=== PATIENT | female | born 1935 | race Caucasian/White ===

== ENCOUNTER 2019-04-12 21:34 | Observation (INO) ==
[2019-04-13 00:06] LABS: Barbiturates Screen,Urine Negative (Negative); Benzodiazepines Screen,Urine Negative (Negative); Cannabinoid Screen,Urine Negative (Negative); Opiate Screen,Urine Positive (Negative); Phencyclidine Screen,Urine Negative (Negative)
[2019-04-13 00:17] LABS: Apearance,Urine CLEAR (Clear); Bilirubin,Urine Negative (Negative); Blood, Urine Negative (Negative); Glucose,Urine (UA) Negative (Negative); Hyaline Casts,Urine 15 /LPF (0-3); Ketones,Urine Negative (Negative); Mucus,Urine Occasional /LPF (Occasional); Nitrite,Urine Negative (Negative); Protein,Urine Negative; Urine Color Yellow (Yellow); Urine Specific Gravity 1.013 (1.001-1.035); Urine Urobilinogen < 2.0 EU/DL (0.2-1.0); WBC,Urine <1 /HPF (0-6)
[2019-04-13 01:35] LABS: Basophils # 0.1 10*3/uL (0.0-0.2); Basophils % 1.3 % (0.0-0.8); Eosinophils # 0.7 10*3/uL (0.0-0.87); Eosinophils % 9.5 % (0.00-10.9); Immature Granulocytes % 0.3 %; Immature Granulocytes Absolute 0.02 #; Lymphocytes # 1.9 10*3/uL (1.4-4.0); Lymphocytes % 24.4 % (21.3-54.2); Mean Corpuscular HGB Conc 30.6 GM/DL (32-36); Mean Corpuscular Volume 90.7 FL (87-102); Mean Platelet Volume 12.8 FL (9.6-12.0); Monocytes % 14.1 % (1.7-12.7); Neutrophils % 50.4 % (38.7-73.9); Platelet Count 179 T/CUMM (130-400); Red Blood Count 3.97 MC/CUMM (3.8-5.5); Red Cell Distribution Width 14.4 % (9.3-17.3); White Blood Count 7.7 T/CUMM (4-12)
[2019-04-13 01:48] LABS: Alanine Aminotransferase 17 U/L (13-56); Albumin 4.1 G/DL (3.4-5.0); Alkaline Phosphatase 72 U/L (45-117); Aspartate Amino Transferase 20 U/L (0-37); Blood Urea Nitrogen 28 MG/DL (7-18); Calcium 9.7 MG/DL (8.5-10.1); Glucose 94 MG/DL (74-106); Osmolality,Calculated 288.1 MOS/KG (273-304); Total Protein 6.9 G/DL (6.4-8.3)
[2019-04-13] MEDS ORDERED: ONDANSETRON 4 MG/2 ML VIAL IV PRN (03:44)
[2019-04-13 04:06] LABS: ABG HCO3 27.9 MMOL/L (20-26); ABG Oxygen Saturation 95.1 % (95-100); ABG PH 7.349 (7.35-7.45); ABG PO2 75.4 MM HG (80-95); Allen Test Positive; Pt O2 Delivery Device CPAP
[2019-04-13 08:46] LABS: Albumin 3.8 G/DL (3.4-5.0); Bilirubin,Total 0.4 MG/DL (0.2-1.0); Calcium 9.8 MG/DL (8.5-10.1); Total Protein 6.7 G/DL (6.4-8.3)
[2019-04-13] MEDS ORDERED: FUROSEMIDE 40 MG TABLET PO SCH (09:00)
[2019-04-13] MEDS ORDERED: levETIRAcetam 250 MG TABLET PO SCH (09:00)
[2019-04-13] MEDS: MAGNESIUM OXIDE 400 MG TABLET PO SCH ×2 (12:16→12:17)
[2019-04-13] MEDS: PROPRANOLOL 10 MG TABLET PO SCH ×2 (12:17→20:39)
[2019-04-13] MEDS: SIMVASTATIN 20 MG TABLET PO SCH (12:17)
[2019-04-13] MEDS: CALCIUM (CARBONATE) 500 MG TABLET PO SCH (12:17)
[2019-04-13] MEDS: DIVALPROEX ER 500 MG TABLET PO SCH (12:17)
[2019-04-13] MEDS: LEVOTHYROXINE 50 MCG TABLET PO SCH (12:18)
[2019-04-13] MEDS: ASPIRIN 325 MG TABLET PO SCH (12:18)
[2019-04-13] MEDS ORDERED: SODIUM CHLORIDE 0.9% 1,000 ML IV SCH (13:30)
[2019-04-14 05:34] LABS: Basophils # 0.1 10*3/uL (0.0-0.2); Basophils % 1.1 % (0.0-0.8); Eosinophils # 0.7 10*3/uL (0.0-0.87); Eosinophils % 10.3 % (0.00-10.9); Hematocrit 32.4 VOL% (35.7-47.0); Hemoglobin 10.1 GM/DL (12.0-16.0); Immature Granulocytes % 0.2 %; Immature Granulocytes Absolute 0.01 #; Lymphocytes # 1.5 10*3/uL (1.4-4.0); Lymphocytes % 22.3 % (21.3-54.2); Mean Corpuscular HGB Conc 31.2 GM/DL (32-36); Mean Platelet Volume 12.1 FL (9.6-12.0); Monocytes % 12.5 % (1.7-12.7); Neutrophils % 53.6 % (38.7-73.9); Platelet Count 150 T/CUMM (130-400); Red Cell Distribution Width 13.8 % (9.3-17.3); White Blood Count 6.5 T/CUMM (4-12)
[2019-04-14 06:19] LABS: Albumin 3.4 G/DL (3.4-5.0); Bilirubin,Total 0.6 MG/DL (0.2-1.0); Calcium 9.4 MG/DL (8.5-10.1); Total Protein 5.7 G/DL (6.4-8.3)
[2019-04-14 06:32] LABS: Eosinophils 11 % (0-10); Hypochromasia 1+; Lymphocytes 29 % (20-55); Platelet Estimate Normal; Segmented Neutrophils 51 % (50-85); Total Cells Counted 100
[2019-04-14] MEDS ORDERED: MORPHINE ER 30 MG TABLET PO ONE (08:43)
[2019-04-14] MEDS: SIMVASTATIN 20 MG TABLET PO SCH (09:09)
[2019-04-14] MEDS: PROPRANOLOL 10 MG TABLET PO SCH (09:09)
[2019-04-14] MEDS: LEVOTHYROXINE 50 MCG TABLET PO SCH (09:10)
[2019-04-14] MEDS: MAGNESIUM OXIDE 400 MG TABLET PO SCH ×2 (09:10→09:12)
[2019-04-14] MEDS: ASPIRIN 325 MG TABLET PO SCH (09:10)
[2019-04-14] MEDS: CALCIUM (CARBONATE) 500 MG TABLET PO SCH (09:11)
[2019-04-14] MEDS: DIVALPROEX ER 500 MG TABLET PO SCH (09:12)
[2019-04-14 11:33] VITALS: BP 136/60
[2019-04-15] MEDS ORDERED: SIMVASTATIN 20 MG TABLET PO SCH (21:00)
== END 2019-04-14 14:49 | disposition home or self-care (01) ==
LOC: EDUNIT# → N.EDINP 21:34 → N.ED 21:34 → SUATTDRO 04-13 03:34 → N.4E 04-13 05:02
PROVIDERS: ADMIT Internal Medicine; ATTEND Internal Medicine

== ENCOUNTER 2020-07-27 10:11 | Observation (INO) ==
[2020-07-27] MEDS ORDERED: ALBUTEROL/IPRATROPIUM 3 ML NEB RESP TX STA (11:19)
[2020-07-27] MEDS ORDERED: DEXAMETHASONE 4 MG/1 ML VIAL IV STA (11:19)
[2020-07-27] MEDS ORDERED: SODIUM CHLORIDE 0.9% 500 ML IV STA (11:19)
[2020-07-27 11:28] LABS: Basophils # 0.1 10*3/uL (0.0-0.2); Basophils % 0.5 % (0.0-0.8); Eosinophils # 0.2 10*3/uL (0.0-0.87); Eosinophils % 1.4 % (0.00-10.9); Hematocrit 36.5 VOL% (35.7-47.0); Immature Granulocytes % 0.9 %; Immature Granulocytes Absolute 0.13 #; Lymphocytes # 1.5 10*3/uL (1.4-4.0); Lymphocytes % 9.6 % (21.3-54.2); Mean Corpuscular HGB Conc 32.9 GM/DL (32-36); Mean Corpuscular Volume 86.3 FL (87-102); Mean Platelet Volume 12.4 FL (9.6-12.0); Monocytes % 12.6 % (1.7-12.7); Platelet Count 129 T/CUMM (130-400); Red Blood Count 4.23 MC/CUMM (3.8-5.5); Red Cell Distribution Width 13.2 % (9.3-17.3); White Blood Count 15.2 T/CUMM (4-12)
[2020-07-27 11:45] LABS: Hypochromasia 1+; Microcytosis 1+
[2020-07-27 11:52] LABS: Albumin 3.1 G/DL (3.4-5.0); Bilirubin,Total 0.6 MG/DL (0.2-1.0); Calcium 8.8 MG/DL (8.5-10.1); Osmolality,Calculated 280.5 MOS/KG (273-304); Total Protein 6.7 G/DL (6.4-8.3)
[2020-07-27] MEDS ORDERED: AZITHROMYCIN INJ 500 MG in SODIUM CHLORIDE 0.9% 250 ML IV STA (12:17)
[2020-07-27] MEDS ORDERED: cefTRIAXone 1,000 MG in SODIUM CHLORIDE 0.9% 100 ML IV STA (12:17)
[2020-07-27 12:31] LABS: Bilirubin,Urine Negative (Negative); Blood, Urine Negative (Negative); Glucose,Urine (UA) Negative (Negative); Hyaline Casts,Urine 1 /LPF (0-3); Ketones,Urine Negative (Negative); Nitrite,Urine Negative (Negative); Protein,Urine 30 MG/DL; RBC,Urine <1 /HPF (0-4); Squamous Epithelial Cell,Urine Occasional /HPF (0-10); Urine Appearance CLEAR (Clear); Urine Color Yellow (Yellow); Urine Specific Gravity 1.014 (1.001-1.035); Urine Urobilinogen < 2.0 EU/DL (0.2-1.0); WBC,Urine <1 /HPF (0-6)
[2020-07-27] MEDS ORDERED: cefTRIAXone 1,000 MG VIAL ONE (13:05)
[2020-07-27] MEDS ORDERED: ONDANSETRON 4 MG/2 ML VIAL IV PRN (13:23)
[2020-07-27] MEDS ORDERED: GLUCAGON 1 MG VIAL IM PRN (13:23)
[2020-07-27] MEDS ORDERED: DEXTROSE 50% 25 GM/50 ML VIAL IV PRN (13:23)
[2020-07-27] MEDS ORDERED: ACETAMINOPHEN 325 MG TABLET PO PRN (13:23)
[2020-07-27] MEDS ORDERED: DOCUSATE SODIUM 100 MG CAPSULE PO PRN (13:23)
[2020-07-27] MEDS ORDERED: ENOXAPARIN 30 MG/0.3 ML SYRINGE SUBCUT SCH (13:30)
[2020-07-27] MEDS: SODIUM CHLORIDE 0.9% 1,000 ML IV SCH (15:18)
[2020-07-27] MEDS: ALBUTEROL 2.5 MG/3 ML NEB RESP TX SCH (19:50)
[2020-07-27] MEDS ORDERED: MONTELUKAST 10 MG TABLET PO SCH (21:00)
[2020-07-27] MEDS ORDERED: SIMVASTATIN 20 MG TABLET PO SCH (21:00)
[2020-07-27] MEDS: PROPRANOLOL 10 MG TABLET PO SCH (21:13)
[2020-07-27] MEDS: oxyCODONE IR 5 MG TABLET PO SCH (21:16)
[2020-07-27] MEDS: CALCIUM (CARBONATE) 500 MG TABLET PO SCH (21:16)
[2020-07-27] MEDS: MORPHINE ER 15 MG TABLET PO SCH (21:17)
[2020-07-27] MEDS: MULTIVITAMIN (OCUVITE) TABLET PO SCH (21:17)
[2020-07-28] MEDS: ALBUTEROL 2.5 MG/3 ML NEB RESP TX SCH ×2 (01:25→07:28)
[2020-07-28] MEDS: SODIUM CHLORIDE 0.9% 1,000 ML IV SCH ×2 (01:39→14:08)
[2020-07-28 05:36] LABS: Basophils % 0.1 % (0.0-0.8); Hematocrit 32.4 VOL% (35.7-47.0); Hemoglobin 10.6 GM/DL (12.0-16.0); Immature Granulocytes % 0.7 %; Immature Granulocytes Absolute 0.07 #; Lymphocytes # 0.7 10*3/uL (1.4-4.0); Lymphocytes % 7.6 % (21.3-54.2); Mean Corpuscular HGB Conc 32.7 GM/DL (32-36); Mean Platelet Volume 12.8 FL (9.6-12.0); Neutrophils % 85.6 % (38.7-73.9); Platelet Count 152 T/CUMM (130-400); Red Blood Count 3.68 MC/CUMM (3.8-5.5); Red Cell Distribution Width 13.2 % (9.3-17.3); White Blood Count 9.5 T/CUMM (4-12)
[2020-07-28 05:52] LABS: Alanine Aminotransferase 16 U/L (13-56); Albumin 2.5 G/DL (3.4-5.0); Alkaline Phosphatase 71 U/L (45-117); Aspartate Amino Transferase 20 U/L (0-37); Bilirubin,Total < 0.39 MG/DL (0.2-1.0); Blood Urea Nitrogen 21 MG/DL (7-18); Estimated Glom Filtration Rate 65 ML/MIN; Glucose 157 MG/DL (74-106); Osmolality,Calculated 288.1 MOS/KG (273-304); Total Protein 6.4 G/DL (6.4-8.3)
[2020-07-28 05:56] LABS: Ferritin 343.1 ng/ml (8-252)
[2020-07-28] MEDS ORDERED: LEVOTHYROXINE 50 MCG TABLET PO SCH (06:30)
[2020-07-28] MEDS ORDERED: PANTOPRAZOLE 40 MG TABLET PO SCH (09:00)
[2020-07-28] MEDS ORDERED: cefTRIAXone 1,000 MG in SYRINGE 1 EACH IV SCH (09:00)
[2020-07-28] MEDS ORDERED: minoxidiL 2.5 MG TABLET PO SCH (09:00)
[2020-07-28] MEDS ORDERED: AZITHROMYCIN INJ 250 MG in SODIUM CHLORIDE 0.9% 250 ML IV SCH (09:00)
[2020-07-28] MEDS ORDERED: MAGNESIUM OXIDE 400 MG TABLET PO SCH (09:00)
[2020-07-28] MEDS ORDERED: FERROUS SULFATE 325 MG TABLET PO SCH (09:00)
[2020-07-28] MEDS ORDERED: CITALOPRAM 40 MG TABLET PO SCH (09:00)
[2020-07-28] MEDS ORDERED: levETIRAcetam 250 MG TABLET PO SCH (09:00)
[2020-07-28] MEDS ORDERED: ASPIRIN 325 MG TABLET PO SCH (09:00)
[2020-07-28] MEDS ORDERED: ENOXAPARIN 40 MG/0.4 ML SYRINGE SUBCUT SCH (09:00)
[2020-07-28] MEDS ORDERED: AZITHROMYCIN 250 MG TABLET PO SCH (09:00)
[2020-07-28] MEDS: CALCIUM (CARBONATE) 500 MG TABLET PO SCH (09:27)
[2020-07-28] MEDS: PROPRANOLOL 10 MG TABLET PO SCH (09:27)
[2020-07-28] MEDS: MULTIVITAMIN (OCUVITE) TABLET PO SCH (09:27)
[2020-07-28] MEDS: oxyCODONE IR 5 MG TABLET PO SCH (09:28)
[2020-07-28] MEDS ORDERED: oxyCODONE IR 5 MG TABLET PO PRN (10:13)
[2020-07-28] MEDS: MORPHINE ER 15 MG TABLET PO SCH (11:04)
[2020-07-28 11:24] VITALS: BP 138/94
== END 2020-07-28 15:48 | disposition home or self-care (01) ==
LOC: EDUNIT# → EDBD → N.EDINP 10:11 → N.ED 10:11 → N.5E 14:29
PROVIDERS: ADMIT Internal Medicine; ATTEND Internal Medicine

== ENCOUNTER 2022-03-18 09:57 | Observation (INO) ==
[2022-03-18 10:31] LABS: Basophils # 0.2 10*3/uL (0.0-0.2); Basophils % 0.9 % (0.0-0.8); Eosinophils # 0.7 10*3/uL (0.0-0.87); Eosinophils % 4.1 % (0.00-10.9); Hemoglobin 12.2 GM/DL (12.0-16.0); Immature Granulocytes % 0.4 %; Immature Granulocytes Absolute 0.07 #; Lymphocytes # 1.5 10*3/uL (1.4-4.0); Mean Corpuscular HGB Conc 32.1 GM/DL (32-36); Mean Corpuscular Volume 89.4 FL (87-102); Mean Platelet Volume 11.6 FL (9.6-12.0); Monocytes # 1.3 10*3/uL (0.11-0.8); Monocytes % 8.2 % (1.7-12.7); Neutrophils % 77.4 % (38.7-73.9); Platelet Count 221 T/CUMM (130-400); Red Blood Count 4.25 MC/CUMM (3.8-5.5); Red Cell Distribution Width 15.3 % (9.3-17.3); White Blood Count 16.2 T/CUMM (4-12)
[2022-03-18 10:44] LABS: Calcium 9.8 MG/DL (8.5-10.1); Osmolality,Calculated 276.7 MOS/KG (273-304); Potassium 4.7 MMOL/L (3.5-5.1)
[2022-03-18 11:36] LABS: Hyaline Casts,Urine 7 /LPF (0-3); Mucus,Urine Occasional /LPF (Occasional); RBC,Urine <1 /HPF (0-4); Squamous Epithelial Cell,Urine Occasional /HPF (0-10)
[2022-03-18 11:37] LABS: Bilirubin,Urine Negative (Negative); Blood, Urine Negative (Negative); Glucose,Urine (UA) Negative (Negative); Ketones,Urine Negative (Negative); Nitrite,Urine Negative (Negative); Protein,Urine Negative (Negative); Urine Appearance Clear (Clear); Urine Color Light Yellow (Yellow); Urine Urobilinogen 0.2 eU/dL (<2.0)
[2022-03-18] MEDS ORDERED: ACETAMINOPHEN 500 MG TABLET PO STA (12:36)
[2022-03-18] MEDS ORDERED: ACETAMINOPHEN 500 MG TABLET ONE (12:36)
[2022-03-18] MEDS ORDERED: GLUCAGON 1 MG VIAL IM PRN (15:02)
[2022-03-18] MEDS ORDERED: ONDANSETRON 4 MG/2 ML VIAL IV PRN (15:02)
[2022-03-18] MEDS ORDERED: DEXTROSE 10% 250 ML BAG IV PRN (15:11)
[2022-03-18] MEDS ORDERED: cefTRIAXone 2,000 MG in SODIUM CHLORIDE 0.9% 100 ML IV SCH (16:00)
[2022-03-18] MEDS: SODIUM CHLORIDE 0.9% 1,000 ML IV SCH (16:34)
[2022-03-18] MEDS ORDERED: ENOXAPARIN 30 MG/0.3 ML SYRINGE SUBCUT SCH (21:00)
[2022-03-18] MEDS ORDERED: NITROGLYCERIN SL 0.4 MG TABLET SL PRN (21:27)
[2022-03-18] MEDS ORDERED: SIMVASTATIN 20 MG TABLET PO SCH (22:00)
[2022-03-19] MEDS: SODIUM CHLORIDE 0.9% 1,000 ML IV SCH ×2 (00:20→08:20)
[2022-03-19 06:30] LABS: Basophils # 0.1 10*3/uL (0.0-0.2); Basophils % 1.4 % (0.0-0.8); Eosinophils # 0.5 10*3/uL (0.0-0.87); Eosinophils % 7.2 % (0.00-10.9); Hematocrit 31.2 VOL% (35.7-47.0); Immature Granulocytes % 0.4 %; Immature Granulocytes Absolute 0.03 #; Lymphocytes # 1.7 10*3/uL (1.4-4.0); Lymphocytes % 23.8 % (21.3-54.2); Mean Corpuscular HGB Conc 31.7 GM/DL (32-36); Mean Corpuscular Volume 90.7 FL (87-102); Mean Platelet Volume 11.9 FL (9.6-12.0); Monocytes # 0.9 10*3/uL (0.11-0.8); Monocytes % 13.3 % (1.7-12.7); Neutrophils % 53.9 % (38.7-73.9); Platelet Count 201 T/CUMM (130-400); Red Blood Count 3.44 MC/CUMM (3.8-5.5); Red Cell Distribution Width 15.7 % (9.3-17.3)
[2022-03-19] MEDS ORDERED: LEVOTHYROXINE 50 MCG TABLET PO SCH (06:30)
[2022-03-19 06:41] LABS: PT Patient Result 11.3 SECS (10.1-12.1); Partial Thromboplastin Time 35.3 SECS (23.7-32.9)
[2022-03-19 06:57] LABS: Albumin 2.9 G/DL (3.4-5.0); Bilirubin,Total 0.4 MG/DL (0.20-1.00); Calcium 8.6 MG/DL (8.5-10.1); Osmolality,Calculated 281.3 MOS/KG (273-304); Potassium 3.7 MMOL/L (3.5-5.1); Thyroid Stimulating Hormone 0.81 uIU/ml (0.358-3.74); Total Protein 5.6 G/DL (6.4-8.2)
[2022-03-19 06:59] LABS: Hemoglobin 9.9 GM/DL (12.0-16.0); White Blood Count 7.1 T/CUMM (4-12)
[2022-03-19] MEDS ORDERED: MULTIVITAMIN (OCUVITE) TABLET PO SCH (09:00)
[2022-03-19] MEDS ORDERED: MAGNESIUM OXIDE 400 MG TABLET PO SCH (09:00)
[2022-03-19] MEDS ORDERED: ASPIRIN 325 MG TABLET PO SCH (09:00)
[2022-03-19] MEDS ORDERED: CALCIUM (CARBONATE)/VITAMIN D 600 MG-400 UNIT TABLET PO SCH (09:00)
[2022-03-19] MEDS ORDERED: PANTOPRAZOLE 40 MG TABLET PO SCH (09:00)
[2022-03-19] MEDS ORDERED: CITALOPRAM 20 MG TABLET PO SCH (09:00)
[2022-03-19] MEDS ORDERED: levETIRAcetam 250 MG TABLET PO SCH (09:00)
[2022-03-19 12:19] VITALS: BP 147/66
[2022-03-19] MEDS ORDERED: MONTELUKAST 10 MG TABLET PO SCH (17:00)
== END 2022-03-19 15:06 | disposition home or self-care (01) ==
LOC: N.ED 09:57 → N.EDINP 09:57 → SUATTDRO 15:02 → N.5E 16:50
PROVIDERS: ADMIT Family Medicine; ATTEND Internal Medicine

== ENCOUNTER 2022-05-29 13:32 | Inpatient (IN) ==
[2022-05-29] MEDS ORDERED: SODIUM CHLORIDE 0.9% 1,000 ML IV STA (13:49)
[2022-05-29 14:02] LABS: Basophils # 0.1 10*3/uL (0.0-0.2); Basophils % 0.7 % (0.0-0.8); Eosinophils # 0.2 10*3/uL (0.0-0.87); Eosinophils % 1.4 % (0.00-10.9); Hematocrit 38.7 VOL% (35.7-47.0); Hemoglobin 12.5 GM/DL (12.0-16.0); Immature Granulocytes % 0.6 %; Immature Granulocytes Absolute 0.07 #; Lymphocytes # 1.9 10*3/uL (1.4-4.0); Mean Corpuscular HGB Conc 32.3 GM/DL (32-36); Mean Corpuscular Volume 88.4 FL (87-102); Mean Platelet Volume 12.3 FL (9.6-12.0); Monocytes # 1.1 10*3/uL (0.11-0.8); Monocytes % 8.6 % (1.7-12.7); Neutrophils % 73.7 % (38.7-73.9); Platelet Count 268 T/CUMM (130-400); Red Blood Count 4.38 MC/CUMM (3.8-5.5); Red Cell Distribution Width 13.9 % (9.3-17.3); White Blood Count 12.5 T/CUMM (4-12)
[2022-05-29 14:14] LABS: INR 1.1; PT Patient Result 11.6 SECS (10.1-12.1)
[2022-05-29 14:20] LABS: Albumin 3.9 G/DL (3.4-5.0); Bilirubin,Total 0.5 MG/DL (0.20-1.00); Calcium 9.7 MG/DL (8.5-10.1); Osmolality,Calculated 280.4 MOS/KG (273-304); Potassium 3.4 MMOL/L (3.5-5.1); Total Protein 6.9 G/DL (6.4-8.2)
[2022-05-29 14:24] LABS: Bilirubin,Urine Negative (Negative); Blood, Urine Negative (Negative); Glucose,Urine (UA) Negative (Negative); Nitrite,Urine Negative (Negative); Urine Appearance Clear (Clear); Urine Color Yellow (Yellow); Urine Urobilinogen 0.2 eU/dL (<2.0)
[2022-05-29 14:25] LABS: Ketones,Urine Trace mg/dL (Negative); Protein,Urine 100 mg/dL (Negative)
[2022-05-29 14:29] LABS: Mucus,Urine Occasional /LPF (Occasional); Squamous Epithelial Cell,Urine Occasional /HPF (0-10)
[2022-05-29] MEDS ORDERED: levETIRAcetam 500 MG/5 ML VIAL IV STA (14:47)
[2022-05-29] MEDS ORDERED: POTASSIUM CHLORIDE 20 MEQ TABLET PO STA (15:26)
[2022-05-29] MEDS ORDERED: ONDANSETRON 4 MG/2 ML VIAL IV PRN (15:27)
[2022-05-29] MEDS ORDERED: DOCUSATE SODIUM 100 MG CAPSULE PO PRN (15:27)
[2022-05-29] MEDS ORDERED: hydrALAZINE 20 MG/1 ML VIAL IV PRN (15:56)
[2022-05-29] MEDS ORDERED: INFLUENZA VIRUS VACCINE 0.5 ML SYRINGE IM ONE (17:14)
[2022-05-29] MEDS: MONTELUKAST 10 MG TABLET PO SCH (17:35)
[2022-05-29] MEDS: ENOXAPARIN 30 MG/0.3 ML SYRINGE SUBCUT SCH (20:43)
[2022-05-29] MEDS: CALCIUM (CARBONATE)/VITAMIN D 600 MG-400 UNIT TABLET PO SCH (20:43)
[2022-05-30 05:00] LABS: Basophils # 0.1 10*3/uL (0.0-0.2); Basophils % 1.1 % (0.0-0.8); Eosinophils # 0.2 10*3/uL (0.0-0.87); Eosinophils % 2.9 % (0.00-10.9); Hematocrit 31.5 VOL% (35.7-47.0); Hemoglobin 9.8 GM/DL (12.0-16.0); Immature Granulocytes % 0.1 %; Immature Granulocytes Absolute 0.01 #; Lymphocytes # 2.2 10*3/uL (1.4-4.0); Lymphocytes % 30.1 % (21.3-54.2); Mean Corpuscular HGB Conc 31.1 GM/DL (32-36); Mean Platelet Volume 12.8 FL (9.6-12.0); Monocytes # 1.2 10*3/uL (0.11-0.8); Monocytes % 16.1 % (1.7-12.7); Neutrophils % 49.7 % (38.7-73.9); Platelet Count 193 T/CUMM (130-400); Red Blood Count 3.46 MC/CUMM (3.8-5.5); Red Cell Distribution Width 14.2 % (9.3-17.3); White Blood Count 7.2 T/CUMM (4-12)
[2022-05-30 05:23] LABS: Bilirubin,Total 0.4 MG/DL (0.20-1.00); Calcium 8.9 MG/DL (8.5-10.1); Osmolality,Calculated 286.7 MOS/KG (273-304); Potassium 3.6 MMOL/L (3.5-5.1); Risk Ratio 2.86; Total Protein 5.7 G/DL (6.4-8.2); VLDL Cholesterol 19.2 MG/DL
[2022-05-30 05:46] LABS: Eosinophils 3 % (0-10); Hypochromia Slight; Lymphocytes 28 % (20-55); Microcytosis Slight; Platelet Estimate Adequate; Total Cells Counted 100
[2022-05-30] MEDS: LEVOTHYROXINE 50 MCG TABLET PO SCH (05:51)
[2022-05-30] MEDS: CALCIUM (CARBONATE)/VITAMIN D 600 MG-400 UNIT TABLET PO SCH ×2 (08:22→20:30)
[2022-05-30] MEDS: PANTOPRAZOLE 40 MG TABLET PO SCH (08:22)
[2022-05-30] MEDS: PROPRANOLOL 10 MG TABLET PO SCH (08:22)
[2022-05-30] MEDS: CITALOPRAM 40 MG TABLET PO SCH (08:23)
[2022-05-30] MEDS: MAGNESIUM OXIDE 400 MG TABLET PO SCH (08:23)
[2022-05-30] MEDS: levETIRAcetam 250 MG TABLET PO SCH (08:23)
[2022-05-30] MEDS: MULTIVITAMIN (OCUVITE) TABLET PO SCH (08:23)
[2022-05-30] MEDS: ASPIRIN 325 MG TABLET PO SCH (08:24)
[2022-05-30 14:40] LABS: % Iron Saturation 15.3 % (18-50); Ferritin 25.8 ng/mL (8-252)
[2022-05-30 14:49] LABS: Folate 6.55 NG/ML (5.38-24.0)
[2022-05-30] MEDS: MONTELUKAST 10 MG TABLET PO SCH (16:17)
[2022-05-30] MEDS: ENOXAPARIN 30 MG/0.3 ML SYRINGE SUBCUT SCH (20:31)
[2022-05-30] MEDS ORDERED: SIMVASTATIN 20 MG TABLET PO SCH (21:00)
[2022-05-31] MEDS: LEVOTHYROXINE 50 MCG TABLET PO SCH (05:35)
[2022-05-31 06:07] LABS: Basophils # 0.1 10*3/uL (0.0-0.2); Basophils % 0.9 % (0.0-0.8); Eosinophils # 0.5 10*3/uL (0.0-0.87); Eosinophils % 5.1 % (0.00-10.9); Hematocrit 34.5 VOL% (35.7-47.0); Hemoglobin 10.9 GM/DL (12.0-16.0); Immature Granulocytes % 0.4 %; Immature Granulocytes Absolute 0.04 #; Lymphocytes # 1.8 10*3/uL (1.4-4.0); Mean Corpuscular HGB Conc 31.6 GM/DL (32-36); Mean Corpuscular Volume 92.5 FL (87-102); Mean Platelet Volume 12.9 FL (9.6-12.0); Monocytes # 1.3 10*3/uL (0.11-0.8); Monocytes % 13.9 % (1.7-12.7); Neutrophils % 60.7 % (38.7-73.9); Platelet Count 198 T/CUMM (130-400); Red Blood Count 3.73 MC/CUMM (3.8-5.5); Red Cell Distribution Width 14.2 % (9.3-17.3); White Blood Count 9.2 T/CUMM (4-12)
[2022-05-31 06:24] LABS: Albumin 3.2 G/DL (3.4-5.0); Bilirubin,Total 0.4 MG/DL (0.20-1.00); Calcium 9.8 MG/DL (8.5-10.1); Potassium 3.7 MMOL/L (3.5-5.1); Total Protein 6.3 G/DL (6.4-8.2)
[2022-05-31] MEDS: CALCIUM (CARBONATE)/VITAMIN D 600 MG-400 UNIT TABLET PO SCH ×2 (11:19→21:14)
[2022-05-31] MEDS: ASPIRIN 325 MG TABLET PO SCH (11:19)
[2022-05-31] MEDS: PROPRANOLOL 10 MG TABLET PO SCH (11:19)
[2022-05-31] MEDS: PANTOPRAZOLE 40 MG TABLET PO SCH (11:20)
[2022-05-31] MEDS: MULTIVITAMIN (OCUVITE) TABLET PO SCH (11:20)
[2022-05-31] MEDS: LOSARTAN 25 MG TABLET PO SCH (11:20)
[2022-05-31] MEDS: levETIRAcetam 250 MG TABLET PO SCH ×2 (11:20→21:15)
[2022-05-31] MEDS: CITALOPRAM 40 MG TABLET PO SCH (11:21)
[2022-05-31] MEDS ORDERED: POTASSIUM CHLORIDE RIDER 10 MEQ/100 ML PREMIX IV PRN (11:26)
[2022-05-31] MEDS ORDERED: MAGNESIUM SULF RIDER 2 GM/50 ML PREMIX IV PRN (11:26)
[2022-05-31] MEDS ORDERED: MAGNESIUM SULF RIDER 2 GM/50 ML PREMIX IV ONE (13:00)
[2022-05-31] MEDS ORDERED: POTASSIUM CHLORIDE 20 MEQ TABLET PO ONE (13:00)
[2022-05-31] MEDS: MAGNESIUM OXIDE 400 MG TABLET PO SCH ×2 (14:27→21:14)
[2022-05-31] MEDS: MONTELUKAST 10 MG TABLET PO SCH (18:19)
[2022-05-31] MEDS: ENOXAPARIN 30 MG/0.3 ML SYRINGE SUBCUT SCH (21:15)
[2022-06-01 04:53] LABS: Basophils # 0.1 10*3/uL (0.0-0.2); Basophils % 0.7 % (0.0-0.8); Eosinophils # 0.3 10*3/uL (0.0-0.87); Eosinophils % 2.8 % (0.00-10.9); Hematocrit 35.9 VOL% (35.7-47.0); Hemoglobin 11.4 GM/DL (12.0-16.0); Immature Granulocytes % 0.4 %; Immature Granulocytes Absolute 0.05 #; Lymphocytes # 1.2 10*3/uL (1.4-4.0); Lymphocytes % 10.6 % (21.3-54.2); Mean Corpuscular HGB Conc 31.8 GM/DL (32-36); Mean Corpuscular Volume 89.8 FL (87-102); Mean Platelet Volume 12.8 FL (9.6-12.0); Monocytes # 1.2 10*3/uL (0.11-0.8); Monocytes % 11.1 % (1.7-12.7); Neutrophils % 74.4 % (38.7-73.9); Platelet Count 207 T/CUMM (130-400); White Blood Count 11.2 T/CUMM (4-12)
[2022-06-01 05:25] LABS: Calcium 9.6 MG/DL (8.5-10.1); Osmolality,Calculated 278.4 MOS/KG (273-304); Potassium 3.8 MMOL/L (3.5-5.1)
[2022-06-01] MEDS: LEVOTHYROXINE 50 MCG TABLET PO SCH (06:22)
[2022-06-01] MEDS: SODIUM CHLORIDE 0.9% 1,000 ML IV SCH ×3 (06:56→22:07)
[2022-06-01] MEDS ORDERED: ROSUVASTATIN 20 MG TABLET PO SCH (09:00)
[2022-06-01] MEDS ORDERED: DIAZEPAM 5 MG TABLET PO ONE (10:30)
[2022-06-01] MEDS ORDERED: diphenhydrAMINE CAP 50 MG CAPSULE PO ONE (10:30)
[2022-06-01] MEDS ORDERED: MAGNESIUM SULF RIDER 2 GM/50 ML PREMIX IV ONE (11:18)
[2022-06-01] MEDS ORDERED: HEPARIN/NACL 0.9% 2 UNITS/ML 2,000 UNIT/1,000 ML BAG IV ONE (11:35)
[2022-06-01] MEDS ORDERED: ACETAMINOPHEN 500 MG TABLET PO ONE (11:35)
[2022-06-01] MEDS ORDERED: hydrALAZINE 20 MG/1 ML VIAL IV ONE (11:45)
[2022-06-01] MEDS ORDERED: ACETAMINOPHEN 500 MG TABLET ONE (11:47)
[2022-06-01] MEDS: PROPRANOLOL 10 MG TABLET PO SCH (11:50)
[2022-06-01] MEDS ORDERED: MIDAZOLAM 2 MG/2 ML VIAL ONE (12:26)
[2022-06-01] MEDS ORDERED: fentaNYL 100 MCG/2 ML VIAL ONE (12:26)
[2022-06-01] MEDS ORDERED: ACETAMINOPHEN 325 MG TABLET PO PRN (13:30)
[2022-06-01] MEDS: CALCIUM (CARBONATE)/VITAMIN D 600 MG-400 UNIT TABLET PO SCH (19:24)
[2022-06-01] MEDS: CITALOPRAM 40 MG TABLET PO SCH (19:24)
[2022-06-01] MEDS: LOSARTAN 25 MG TABLET PO SCH (19:24)
[2022-06-01] MEDS: ASPIRIN 325 MG TABLET PO SCH (19:24)
[2022-06-01] MEDS: levETIRAcetam 250 MG TABLET PO SCH (19:25)
[2022-06-01] MEDS: PANTOPRAZOLE 40 MG TABLET PO SCH (19:25)
[2022-06-01] MEDS: MAGNESIUM OXIDE 400 MG TABLET PO SCH (19:25)
[2022-06-01] MEDS: MULTIVITAMIN (OCUVITE) TABLET PO SCH (19:25)
[2022-06-01] MEDS: MONTELUKAST 10 MG TABLET PO SCH (19:25)
[2022-06-01] MEDS ORDERED: MORPHINE 2 MG/1 ML SYRINGE ONE (20:59)
[2022-06-01] MEDS ORDERED: PROPRANOLOL 10 MG TABLET PO SCH (21:00)
[2022-06-01 21:24] LABS: Arterial Base Excess iSTAT -2 MMOL/L (-2.5-2.5); Arterial Bicarbonate iSTAT 22.6 MMOL/L (20-26); Arterial O2 Saturation iSTAT 100 % (95-100); Arterial PCO2 iSTAT 38 MM HG (35-48); Arterial PO2 iSTAT 334 MM HG (80-95); Arterial Total CO2 iSTAT 24 MMO/L (23-27); Arterial pH iSTAT 7.388 (7.35-7.45)
[2022-06-01] MEDS ORDERED: MORPHINE 2 MG/1 ML SYRINGE IV ONE ×3 (21:30→23:43)
[2022-06-01 21:43] VITALS: BP 122/79
[2022-06-01] MEDS ORDERED: MIDAZOLAM 100 MG in SODIUM CHLORIDE 0.9% 80 ML IV PRN (22:00)
[2022-06-01] MEDS ORDERED: fentaNYL INJ 1,250 MCG in SODIUM CHLORIDE 0.9% 225 ML IV PRN (22:01)
[2022-06-01] MEDS: MIDAZOLAM 2 MG/2 ML VIAL IV ONE ×2 (22:12→23:02)
[2022-06-01 22:24] LABS: Basophils # 0.1 10*3/uL (0.0-0.2); Basophils % 0.4 % (0.0-0.8); Eosinophils % 0.1 % (0.00-10.9); Hematocrit 38.8 VOL% (35.7-47.0); Hemoglobin 11.8 GM/DL (12.0-16.0); Immature Granulocytes % 1.5 %; Immature Granulocytes Absolute 0.28 #; Lymphocytes % 22.2 % (21.3-54.2); Mean Corpuscular HGB Conc 30.4 GM/DL (32-36); Mean Corpuscular Volume 94.4 FL (87-102); Monocytes # 0.8 10*3/uL (0.11-0.8); Monocytes % 4.6 % (1.7-12.7); NRBC # 0.02 10*3/uL; Neutrophils % 71.2 % (38.7-73.9); Platelet Count 180 T/CUMM (130-400); Red Blood Count 4.11 MC/CUMM (3.8-5.5); Red Cell Distribution Width 14.6 % (9.3-17.3); White Blood Count 18.2 T/CUMM (4-12)
[2022-06-01 22:34] LABS: Arterial Base Excess iSTAT -2 MMOL/L (-2.5-2.5); Arterial Bicarbonate iSTAT 22.8 MMOL/L (20-26); Arterial O2 Saturation iSTAT 100 % (95-100); Arterial PCO2 iSTAT 40 MM HG (35-48); Arterial PO2 iSTAT 464 MM HG (80-95); Arterial Total CO2 iSTAT 24 MMO/L (23-27); Arterial pH iSTAT 7.365 (7.35-7.45)
[2022-06-01 22:56] LABS: Albumin 2.7 G/DL (3.4-5.0); Bilirubin,Total 0.6 MG/DL (0.20-1.00); Calcium 10.1 MG/DL (8.5-10.1); Osmolality,Calculated 281.5 MOS/KG (273-304); Potassium 3.9 MMOL/L (3.5-5.1)
[2022-06-01] MEDS ORDERED: cefTRIAXone 1,000 MG in SODIUM CHLORIDE 0.9% 100 ML IV SCH (23:00)
[2022-06-01] MEDS ORDERED: SODIUM BICARBONATE 50 MEQ/50 ML VIAL IV ONE ×3 (23:03→23:43)
[2022-06-01 23:13] LABS: Bilirubin,Urine Negative (Negative); Blood, Urine Small mg/dL (Negative); Glucose,Urine (UA) Negative (Negative); Ketones,Urine 20 mg/dL (Negative); Mucus,Urine Occasional /LPF (Occasional); Nitrite,Urine Negative (Negative); Protein,Urine 100 mg/dL (Negative); RBC,Urine 4 /HPF (0-4); Urine Appearance CLEAR (Clear); Urine Color Yellow (Yellow); Urine Specific Gravity 1.036 (1.001-1.035); Urine Urobilinogen < 2.0 eU/dL (<2.0)
[2022-06-01] MEDS ORDERED: MIDAZOLAM 10 MG/2 ML VIAL ONE (23:17)
[2022-06-01] MEDS ORDERED: MIDAZOLAM 2 MG/2 ML VIAL IV ONE (23:43)
== END 2022-06-01 23:30 | disposition expired | DRG 286 ==
LOC: N.EDINP 13:32 → N.ED 13:32 → SUATTDRO 15:27 → N.5E 16:05 → N.ICU 06-01 22:03
PROVIDERS: ADMIT Internal Medicine; ATTEND Internal Medicine
PROC: CLCCHCL (ICD-10-PCS; 2022-06-01 12:45)